=== PATIENT | male | born 1960 | race Caucasian/White ===

== ENCOUNTER → 2020-12-02 | Outpatient (CLI) | payer BC ==
[~2020-12-02] MED LIST: PROAIR HFA8.5 GM INH; ZOCOR 10 MG TAB10 MG PO; ZPAK PO
== END ==
LOC: SJCVCIMAG 11:54
PROVIDERS: ATTEND Internal Medicine
DX: R00.0 Tachycardia, unspecified (principal); I49.1 Atrial premature depolarization; R93.1 Abnormal findings on diagnostic imaging of heart and coronary circulation; R06.00 Dyspnea, unspecified

== ENCOUNTER → 2020-12-19 | Outpatient (CLI) | payer BC | LOC: CAT 09:16 | PROVIDERS: ATTEND Internal Medicine | DX: Z12.2 Encounter for screening for malignant neoplasm of respiratory organs (principal); I25.10 Atherosclerotic heart disease of native coronary artery without angina pectoris; Z87.891 Personal history of nicotine dependence ==